=== PATIENT | male | born 1965 | race Caucasian/White ===

== ENCOUNTER 2017-11-22 08:48 | Outpatient (CLI) | payer BC | END 2017-11-22 08:49 | disposition home or self-care (01) | LOC: BICRAD 08:48 | PROVIDERS: ATTEND Internal Medicine | DX: M25.531 Pain in right wrist (principal); M25.532 Pain in left wrist; M25.541 Pain in joints of right hand; M25.542 Pain in joints of left hand; M19.031 Primary osteoarthritis, right wrist; M19.032 Primary osteoarthritis, left wrist; M19.041 Primary osteoarthritis, right hand; M19.042 Primary osteoarthritis, left hand ==

== ENCOUNTER 2018-10-14 13:05 | Inpatient (IN) | payer BC ==
[2018-10-14] MEDS ORDERED: Fentanyl 100 MCG/2 ML VIAL ONE ×2 (13:26→16:05)
[2018-10-14] MEDS ORDERED: Ketorolac Tromethamine 30 MG/ML VIAL ONE (13:26)
[2018-10-14] MEDS ORDERED: Lorazepam 2 MG/ML VIAL ONE (13:26)
[2018-10-14 13:40] LABS: #Eosinphils 0.1 thou/uL (0.0-0.7); #Neutrophils 9.5 thou/uL (1.40-6.50); %Basophils 0.3 % (0.0-1.0); %Eosinophils 0.5 % (0.0-10.0); %Lymphocytes 16.1 % (21.0-51.0); %Monocytes 7.9 % (0.0-10.0); %Neutrophils 75.2 % (42.0-75.0); Hemoglobin 15.9 g/dL (14.0-18.0); Mean Corpuscular HGB CONC 34.6 g/dL (32.0-36.0); Mean Corpuscular Hemoglobin 30.7 pg (27.0-31.0); Mean Corpuscular Volume 88.7 fL (78.0-98.0); Mean Platelet Volume 7.8 fL (7.4-10.4); Platelet Count 240 thou/uL (130-400); Red Blood Cell (RBC) Count 5.17 mill/uL (4.70-6.10); White Blood Cell (WBC) Count 12.6 thou/uL (4.8-10.8)
[2018-10-14 14:03] LABS: CRP (Inflammatory) Less than 0.50 mg/dL (= or < 0.5); Lipase 18 U/L (8-78)
[2018-10-14 14:09] LABS: ALT (SGPT) 35 U/L (8-55); AST (SGOT) 79 U/L (5-34); Albumin 4.5 g/dL (3.5-5.0); Alkaline Phosphatase 96 U/L (40-150); Anion Gap 17 mmol/L (10-20); BUN (Urea Nitrogen) 18 mg/dL (8.4-25.7); Bilirubin, Total 1.3 mg/dL (0.2-1.2); Calc. Creatinine Clearance 0 mL/min (70-130); Calcium 9.9 mg/dL (7.8-10.44); Carbon Dioxide 18 mmol/L (22-29); Chloride 108 mmol/L (98-107); Estimated GFR-MDRD Greater than 90; Globulin 4.3 g/dL (2.4-3.5); Glucose 114 mg/dL (70-105); Potassium 4.6 mmol/L (3.5-5.1); Protein, Total 8.8 g/dL (6.0-8.3); Sodium 138 mmol/L (136-145)
--- NOTE | 2018-10-14 14:31 | RAD ---
LUMBAR SPINE SERIES 3 VIEWS: Date: 10/14/18 HISTORY: Chronic back pain. FINDINGS: The vertebral bodies are normal in height. There are degenerative osteophytes along the course of the spine with disc narrowing at L5-S1. Moderate degenerative facet changes are seen. Some slight loss o f vertebral body height of T12 which appears to be chronic in nature. IMPRESSION: Marked arthritic changes of the spine. No definite acute process. POS: DAVID
--- NOTE | 2018-10-14 16:28 | MRI ---
MRI LUMBAR SPINE WITH AND WITHOUT IV CONTRAST: HISTORY: Intractable back pain. FINDINGS: The conus medullaris is unremarkable, terminating at approximately L1-L2. There are consider able generalized disk desiccation changes, disk osteophytosis, and generalized facet arthrosis. L1-L2: There is no significant canal or lateral recess, or foraminal stenosis. L2-L3: There is some mild central canal and moderate lateral recess stenosis bilaterally, with mild bilateral foraminal stenosis. L3-L4: There is a large central disk extrusion with very severe central canal and lateral recess luisito nosis and marked thecal sac compression with mild bilateral foraminal stenosis. L4-L5: There is moderate central canal and lateral recess stenosis and mild bilateral foraminal sten osis. L5-S1: There is some generalized left posterolateral disk protrusion with some moderate left lateral recess stenosis and moderate to severe left foraminal stenosis with associated annular fissures. No significant abnormal marrow signal. IMPRESSION: 1. Very large, central extruded disk herniation at L3-L4, with very severe central canal and lateral recess stenosis and some associated foraminal stenosis. 2. At least moderate stenosis at L4-L5 and mild to moderate stenosis at L2-L3, as well as a left pos terolateral broad-based protrusion at L5-S1 with left foraminal stenosis. 3. No significant abnormal marrow signal. POS: DAVID
[2018-10-14] MEDS ORDERED: Gadobenate Dimeglumine 529 MG/1 ML (20ML VIAL) ONE (16:55)
[2018-10-14] MEDS ORDERED: Sodium Chloride 0.9% 1,000 ML IV SCH (18:22)
[2018-10-14] MEDS ORDERED: Ondansetron ODT 4 MG TAB SL PRN (18:22)
[2018-10-14] MEDS ORDERED: Ondansetron PF 4 MG/2 ML Vial IVP PRN (18:22)
[2018-10-14] MEDS ORDERED: Morphine 4 MG/ML VIAL SLOW IVP PRN (18:23)
[2018-10-14] MEDS ORDERED: Acetaminophen 325 MG TAB PO PRN (19:23)
[2018-10-14] MEDS ORDERED: Senokot S 8.6-50 MG TAB PO PRN (19:23)
[2018-10-14] MEDS ORDERED: Acetaminophen 650 MG Suppository PR PRN (19:23)
--- NOTE | 2018-10-14 20:02 | HP ---
CHIEF COMPLAINT: Increased low back pain. HISTORY OF PRESENT ILLNESS AND REVIEW OF SYSTEMS: Mr. Barry is a pleasant 53-year-old man with a background history of chronic back pain, following a skydiving accident in 1992. He has been following with a chiropractor and usually manages his pain by taking the occasional ibuprofen. When his pain flares, he will take hydrocodone. The patient states last week he underwent manipulation on Monday and had persistent pain and therefore underwent injections on Monday in his lower back of cortisone. The patient states since then, his pain has been more severe , causing difficulty moving around his home. He has only been able to get up into the toilet. He has not been taking his normal analgesia due to not being able to stand, walking to the kitchen where his pain medications are. The patient normally is able to mobilize without such difficulty. 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 The patient denies noting any urinary or stool incontinence. He reports sciatic like pain shooting down the bilateral legs, which has eased. Denies having any numbness or weakness apart from chronic right-sided weakness associated with a previous stroke. He states he has not been urinating much and last emptied his bladder early this morning, dark and small amounts of urine, which he attributes to not eating or drinking for the last three days. He has had minimal intake. Denies having any fevers, chills, or sweats. Denies having any headaches or dizziness. Has not had any chest pain, palpitations, or shortness of breath. All other review of systems are negative. PAST MEDICAL HISTORY: 1. Possible stroke in the past. 2. Hypertension. 3. Chronic low back pain following skydiving accident in . 4. Diabetes mellitus type 2. PAST SURGICAL HISTORY: 1. Removal of a cyst. 2. Tonsillectomy. SOCIAL HISTORY: The patient denies any alcohol use, drug use. He previously has used tobacco. Lives at home alone. ALLERGIES: VIBRAMYCIN CAPSULE. CURRENT MEDICATIONS: 1. Aspirin 81 mg p.o. daily. 2. Atorvastatin 80 mg once daily. 3. Vitamin D3 of 1000 units by mouth daily. 4. Metformin 500 mg once daily. PHYSICAL EXAMINATION: GENERAL: The patient appears to be in some discomfort and is lying flat on the stretcher, no severe distress at present. He states his pain has eased from a 10/10 to a 5/10. HEENT: Normocephalic and atraumatic. Pupils are equal, round, and reactive to light. Sclerae without icterus. Oropharynx is clear. NECK: Supple without lymphadenopathy. LUNGS: Clear to auscultation bilaterally without wheezes, rales, or rhonchi. CARDIAC: Regular rate and rhythm without audible murmurs, rubs, or gallops. ABDOMEN: Soft, nontender, nondistended. Normoactive bowel sounds present. EXTREMITIES: No clubbing, cyanosis, or edema. Strength is 4/5 in the right leg , stable. Reflexes intact. No focal neurology. LABORATORY DATA: White blood count 12.6, hemoglobin 15.9, hematocrit 45.9, platelets 240. Sodium 138, potassium 4.6, BUN 18, creatinine 0.84, GFR greater than 90. Total bilirubin 1.3, AST 79, ALT 35, and alkaline phosphatase 96. CRP less than 0.50. Lipase 18. IMAGING DATA: 1. Lumbar spine x-ray, October 14, 2018, marked arthritic changes of the spine, no definite acute process. 2. Lumbar spine MRI, October 14, 2018, very large central extruded disk herniation at L3-L4 with very severe central canal and lateral recess stenosis and some associated foraminal stenosis. At least, moderate stenosis at L4-L5, mild to moderate stenosis at L2-L3 as well as a left posterolateral broad-based protrusion at L5-S1 with left foraminal stenosis. PROCEDURES: Bladder scan, less than 200 mL. IMPRESSION AND PLAN: Mr. Barry is being admitted for the following medical conditions. 1.Back Pain. There does seem to be significant stenosis on the MRI of the lumbar spine. However, no symptoms for cauda equina at present. Neurosurgical consult has been requested. Continue analgesia. 2. Diabetes mellitus. Resume home medications. Continue insulin sliding scale. 3. Hypertension. Resume home medications. Monitor blood pressure. 4. Dehydration. The patient is clinically dehydrated with minimal oral intake for the last three days. Continue IV fluids. 5. Gastrointestinal prophylaxis. 6. Venous thromboembolism prophylaxis. The patient's case was discussed with Dr. Grady, who agrees with plan of care as described above. Job ID: [id number] [facility]
[2018-10-14] MEDS: HYDROcodone/Acetaminophen 5/325 mg Tablet PO PRN (21:57)
[2018-10-14] MEDS: Famotidine 20 MG TAB PO SCH (21:58)
[2018-10-14] MEDS: Sodium Chloride 0.9% 1,000 ML IV SCH (21:59)
[2018-10-14 22:46] VITALS: BMI 47.3
[2018-10-15] MEDS ORDERED: Fentanyl 100 MCG/2 ML VIAL SLOW IVP SCH (03:45)
[2018-10-15 06:10] LABS: #Eosinphils 0.2 thou/uL (0.0-0.7); #Lymphocytes 2.9 thou/uL (1.20-3.40); #Monocytes 1.2 thou/uL (0.11-0.59); #Neutrophils 7.3 thou/uL (1.40-6.50); %Basophils 0.4 % (0.0-1.0); %Eosinophils 1.4 % (0.0-10.0); %Lymphocytes 24.9 % (21.0-51.0); %Monocytes 10.5 % (0.0-10.0); %Neutrophils 62.8 % (42.0-75.0); Hemoglobin 14.5 g/dL (14.0-18.0); Mean Corpuscular HGB CONC 33.1 g/dL (32.0-36.0); Mean Corpuscular Hemoglobin 29.7 pg (27.0-31.0); Mean Corpuscular Volume 89.8 fL (78.0-98.0); Mean Platelet Volume 7.6 fL (7.4-10.4); Platelet Count 214 thou/uL (130-400); Red Blood Cell (RBC) Count 4.88 mill/uL (4.70-6.10); White Blood Cell (WBC) Count 11.7 thou/uL (4.8-10.8)
[2018-10-15] MEDS: HYDROcodone/Acetaminophen 5/325 mg Tablet PO PRN (06:24)
[2018-10-15 06:33] LABS: Anion Gap 12 mmol/L (10-20); BUN (Urea Nitrogen) 20 mg/dL (8.4-25.7); Calc. Creatinine Clearance 216 mL/min (70-130); Calcium 9.3 mg/dL (7.8-10.44); Carbon Dioxide 22 mmol/L (22-29); Chloride 108 mmol/L (98-107); Estimated GFR-MDRD Greater than 90; Glucose 107 mg/dL (70-105); Potassium 3.5 mmol/L (3.5-5.1); Sodium 138 mmol/L (136-145)
[2018-10-15] MEDS: Famotidine 20 MG TAB PO SCH ×2 (09:29→20:22)
[2018-10-15] MEDS: Sodium Chloride 0.9% 1,000 ML IV SCH ×2 (09:38→20:19)
[2018-10-15] MEDS: Ketorolac Tromethamine 30 MG/ML VIAL IVP PRN ×2 (13:03→20:23)
--- NOTE | 2018-10-15 16:42 | PDOC.PN ---
- Subjective Encounter Start Date: 10/15/18 Encounter Start Time: 16:40 Subjective: Patient lying in bed, back pain little improved today, he denies chest pain -: or shortness of breath. MRI results reviewed and neurosurgery consulted - Objective MAR Reviewed: Yes Vital Signs & Weight: Vital Signs (12 hours) Temp Pulse Resp BP BP Pulse Ox 10/15/18 12:54 98.3 F 68 20 137/80 95 10/15/18 07:50 98.5 F 72 20 137/82 93 L 10/15/18 07:32 98.5 F 72 20 137/82 93 L Weight Admit Weight 339 lb 7 oz Weight 339 lb 7 oz I&O: 10/14/18 10/15/18 10/16/18 06:59 06:59 06:59 Intake Total 792 Output Total 625 Balance 167 Result Diagrams: 10/15/18 05:35 10/15/18 05:35 Radiology Reviewed by me: Yes Phys Exam - Physical Examination Distress due to pain HEENT: PERRLA, moist MMs, oral pharynx no lesions Neck: no nodes, full ROM Respiratory: no wheezing, no rales, clear to auscultation bilateral Cardiovascular: RRR, no significant murmur, no rub Gastrointestinal: soft, non-tender, positive bowel sounds Musculoskeletal: no edema, pulses present Neurological: non-focal, moves all 4 limbs Lymphatic: no nodes Psychiatric: normal affect, A&O x 3 Skin: no rash, cap refill <2 seconds Dx/Plan (1) Lumbar spinal stenosis Code(s): M48.061 - SPINAL STENOSIS, LUMBAR REGION WITHOUT NEUROGENIC PATRICE Status: Acute Qualifiers: Neurogenic claudication status: with neurogenic claudication Qualified Code (s): M48.062 - Spinal stenosis, lumbar region with neurogenic claudication (2) Diabetes mellitus Code(s): E11.9 - TYPE 2 DIABETES MELLITUS WITHOUT COMPLICATIONS Status: Acute (3) Hypertension Code(s): I10 - ESSENTIAL (PRIMARY) HYPERTENSION Status: Acute - Plan cont current plan of care, PT/OT, DVT proph w/lovenox Neuro consult cancelled and neuro surgery consulted -: MRI results reviewed, continue pain regimen. -: Added Toradol -: Continue other home medications -: Continue on cardiac/consistent carb diet * .
[2018-10-15] MEDS ORDERED: Enoxaparin Sodium 40 MG/0.4 ML SYRINGE SC SCH (21:00)
[2018-10-16] MEDS: HYDROcodone/Acetaminophen 5/325 mg Tablet PO PRN (00:52)
[2018-10-16] MEDS: Ketorolac Tromethamine 30 MG/ML VIAL IVP PRN ×3 (04:30→20:11)
[2018-10-16 07:40] LABS: #Basophils 0.1 thou/uL (0.0-0.2); #Eosinphils 0.3 thou/uL (0.0-0.7); #Lymphocytes 2.3 thou/uL (1.20-3.40); #Monocytes 0.9 thou/uL (0.11-0.59); #Neutrophils 5.5 thou/uL (1.40-6.50); %Basophils 0.9 % (0.0-1.0); %Eosinophils 3.1 % (0.0-10.0); %Lymphocytes 25.7 % (21.0-51.0); %Monocytes 9.9 % (0.0-10.0); %Neutrophils 60.4 % (42.0-75.0); Hemoglobin 14.1 g/dL (14.0-18.0); Mean Corpuscular HGB CONC 33.1 g/dL (32.0-36.0); Mean Corpuscular Hemoglobin 29.6 pg (27.0-31.0); Mean Corpuscular Volume 89.5 fL (78.0-98.0); Mean Platelet Volume 7.7 fL (7.4-10.4); Platelet Count 207 thou/uL (130-400); RBC Distribution Width 11.8 % (11.5-14.5); Red Blood Cell (RBC) Count 4.78 mill/uL (4.70-6.10)
[2018-10-16 08:00] LABS: Anion Gap 14 mmol/L (10-20); BUN (Urea Nitrogen) 19 mg/dL (8.4-25.7); Calc. Creatinine Clearance 239 mL/min (70-130); Calcium 8.8 mg/dL (7.8-10.44); Carbon Dioxide 20 mmol/L (22-29); Chloride 110 mmol/L (98-107); Estimated GFR-MDRD Greater than 90; Glucose 114 mg/dL (70-105); Potassium 3.9 mmol/L (3.5-5.1); Sodium 140 mmol/L (136-145)
[2018-10-16] MEDS: Famotidine 20 MG TAB PO SCH ×2 (08:42→20:11)
--- NOTE | 2018-10-16 10:21 | CON ---
DATE OF CONSULTATION: SERVICE: Neurosurgical Service. HISTORY OF PRESENT ILLNESS: Mr. Barry is a 53-year-old man, whom I have actually seen before in clinic a few years ago for similar problem that he has now with that being back pain and some neurogenic claudication symptoms. These took an acute turn for the worse on Monday [place], where he developed intractable pain that essentially inhibited his ability to walk. He was brought into the emergency department and then admitted with our colleagues in the Medicine Service, where an MRI was performed, revealing a disk herniation at L3-L4 with really critical central canal stenosis encompassing nearly 60% to 70% of the spinal canal at this level. He is congenitally narrowed already, so this certainly predisposes him to spinal nerve compression with either milder pathology, but this particular herniation is of substantial size. The rest of his lumbar spine seems essentially normal. Neurosurgery was consulted for this reason. I saw him at bedside this morning, he is only able to lay recumbent about 15 to 20 degrees, lying further flat causes him more pain in his back. He states that every time he sits up or comes to standing that the pain becomes severe and he develops radicular symptoms of his bilateral lower extremities that nearly completely inhibits him from ambulating. He has been on a pain regimen here that helped reduce some of his symptoms really only when he is lying down and has not seemed to help significantly when sitting or standing. I discussed with him at bedside the recommendations of surgical intervention to perform diskectomy and laminectomy at the site as I had some years ago in clinic, but given the intractable nature of his pain symptoms now, I think it is more prudent at this time. He is open to the idea and would like to proceed. I discussed the procedure in detail as well as risks, benefits, and alternatives. After further discussion, he again concludes that he would like to proceed with this. Our plan will be to add him on to our surgical schedule tomorrow to perform an L3 diskectomy and decompression. He will need to be n.p.o. tonight and consents will need to be signed. I will discuss the case with Dr. Prado who will also meet with the patient either today or in the morning tomorrow. Job ID: [id number]
[2018-10-16] MEDS ORDERED: CEFAZOLIN/Water 2 GM/20 ML SYRINGE SLOW IVP SCH ×2 (10:30→10:45)
[2018-10-16] MEDS: Sodium Chloride 0.9% 1,000 ML IV SCH ×2 (11:56→20:11)
--- NOTE | 2018-10-16 16:00 | PDOC.PN ---
- Subjective Encounter Start Date: 10/16/18 Encounter Start Time: 15:53 Patient lying in bed, he reports pain better with toradol. He denies chest pain or shortness of breath. Still with pain radiating down lower extremities. Neurosurgery planning surgery tomorrow. - Objective MAR Reviewed: Yes Vital Signs & Weight: Vital Signs (12 hours) Temp Pulse Resp BP Pulse Ox 10/16/18 12:43 98.1 F 84 22 H 154/86 H 93 L 10/16/18 08:00 98.1 F 82 22 H 151/87 H 94 L 10/16/18 04:41 97.6 F 73 16 135/81 95 Weight Admit Weight 339 lb 7 oz Weight 339 lb 7 oz I&O: 10/15/18 10/16/18 10/17/18 06:59 06:59 06:59 Intake Total 792 2442 Output Total 625 830 Balance 167 1612 Result Diagrams: 10/16/18 06:50 10/16/18 06:50 Radiology Reviewed by me: Yes Phys Exam - Physical Examination Mild distress due to pain HEENT: PERRLA, oral pharynx no lesions Neck: no nodes, no JVD, full ROM Respiratory: no wheezing, clear to auscultation bilateral Cardiovascular: RRR, no significant murmur Gastrointestinal: soft, non-tender, positive bowel sounds Obese Musculoskeletal: pulses present Neurological: non-focal, moves all 4 limbs Lymphatic: no nodes Psychiatric: normal affect, A&O x 3 Skin: no rash, cap refill <2 seconds Dx/Plan (1) Lumbar spinal stenosis Code(s): M48.061 - SPINAL STENOSIS, LUMBAR REGION WITHOUT NEUROGENIC PATRICE Status: Acute Qualifiers: Neurogenic claudication status: with neurogenic claudication Qualified Code (s): M48.062 - Spinal stenosis, lumbar region with neurogenic claudication (2) Diabetes mellitus Code(s): E11.9 - TYPE 2 DIABETES MELLITUS WITHOUT COMPLICATIONS Status: Acute (3) Hypertension Code(s): I10 - ESSENTIAL (PRIMARY) HYPERTENSION Status: Acute - Plan cont current plan of care * Continue pain regimen * Neurosurgery planning taking patient to OR tomorrow * Continue other home medications * Monitor vitals and labs and further management pending outcome of surgery
--- NOTE | 2018-10-16 21:08 | PRG ---
DATE OF SERVICE: 10/16/2018 Mr. Barry is a 53-year-old gentleman who presented on the 3rd with debilitating low back, buttock and leg pain. He reached a point where he was unable to ambulate secondary to pain. He was admitted to the hospital for pain control and further evaluation. He had an MRI scan performed of the lumbar spine which shows age-appropriate degenerative spine disease, but also a significant disk herniation at L3-L4. which results in severe central canal stenosis. This is almost certainly the contributor to his pain. I had a lengthy discussion with him today in his room and discussed with him his diagnosis, the imaging and the proposed surgical procedure which would be L3-L4 decompression and diskectomy. I informed him of all of his risks, benefits, and alternatives and answered all of his questions. He is eager to move forward with surgery, which will take place tomorrow. Informed consent was provided. Job ID: [id number]
[2018-10-17] MEDS: Ketorolac Tromethamine 30 MG/ML VIAL IVP PRN ×2 (02:15→20:42)
[2018-10-17] MEDS ORDERED: CEFAZOLIN 2 GM/50 ML-DEXTROSE 2 GM in Premix Bag 1 BAG IVPB SCH (05:00)
[2018-10-17] MEDS ORDERED: Midazolam HCl 2 mg/2 ml Vial ONE (07:44)
[2018-10-17] MEDS ORDERED: Fentanyl 100 MCG/2 ML VIAL ONE ×2 (07:44→09:37)
[2018-10-17] MEDS: Famotidine 20 MG TAB PO SCH ×2 (08:09→20:42)
[2018-10-17] MEDS ORDERED: Thrombin 5000 UNITS/5 ML VIAL ONE (08:28)
[2018-10-17] MEDS ORDERED: Bupivacaine HCl 0.5%/Epinephrine 1:200,000/PF 30 ml Vial ONE (08:30)
[2018-10-17] MEDS ORDERED: Ophthalmic Irrigation Solution 15 ML ONE (08:30)
--- NOTE | 2018-10-17 10:36 | EKG ---
Test Reason : PREOP Blood Pressure : / mmHG Vent. Rate : 075 BPM Atrial Rate : 075 BPM P-R Int : 162 ms QRS Dur : 092 ms QT Int : 386 ms P-R-T Axes : 076 059 026 degrees QTc Int : 431 ms Normal sinus rhythm Normal ECG No previous ECGs available Confirmed by DR. Raul MARTINEZ ([id number]) on 10/17/2018 10:36:24 AM Referred By: CHALO Confirmed By:DR. Raul MARTINEZ
[2018-10-17] MEDS ORDERED: Succinylcholine Chloride 20 MG/ML 10 ml SYRINGE FS ONE (10:41)
[2018-10-17] MEDS ORDERED: ePHEDrine 50 MG/ML VIAL ONE (10:41)
[2018-10-17] MEDS ORDERED: Lidocaine 1% PF 5 ML VIAL ONE (10:41)
[2018-10-17] MEDS ORDERED: PROPOFOL 200 MG/20 ML VIAL ONE (10:41)
[2018-10-17] MEDS ORDERED: Rocuronium Bromide 10 MG/ML (10ML VIAL) ONE (10:41)
[2018-10-17] MEDS ORDERED: Ketorolac Tromethamine 30 MG/ML VIAL ONE (10:41)
[2018-10-17] MEDS ORDERED: Ondansetron PF 4 MG/2 ML Vial ONE (10:41)
[2018-10-17] MEDS ORDERED: Glycopyrrolate 0.2 MG/ML 5 ML SYRINGE ONE (10:41)
[2018-10-17] MEDS ORDERED: Dexamethasone 20 MG/5 ML VIAL ONE (10:41)
[2018-10-17] MEDS ORDERED: HYDROmorphone 2 MG/ML VIAL SLOW IVP PRN (10:51)
[2018-10-17] MEDS ORDERED: Promethazine HCl 25 MG/ML VIAL IM PRN (10:51)
[2018-10-17] MEDS ORDERED: Promethazine HCl 25 MG/ML VIAL SLOW IVP PRN (10:51)
[2018-10-17] MEDS ORDERED: Ketorolac Tromethamine 30 MG/ML VIAL IVP PRN (10:51)
[2018-10-17] MEDS ORDERED: Ondansetron HCl/PF 4 MG/2 ML Vial IVP PRN (10:51)
--- NOTE | 2018-10-17 10:54 | OP ---
DATE OF PROCEDURE: 10/17/2018 SHOT HOLE DRILLER: Austen Trujillo PA-C. INDICATION: Pain. DIAGNOSIS: Lumbar stenosis with claudication and radiculopathy. PROCEDURE PERFORMED: L3-L4 lumbar decompression with diskectomy. ANESTHESIA: General. DESCRIPTION OF PROCEDURE: The patient was brought into the operating room and placed under general anesthesia. He was flipped from the supine to prone position on the operating room table. A linear incision was planned over the L3-L4 segment. After prepping and draping and after preoperative pause, the incision was created. The soft tissues were swept away from midline. Self-retaining retractors were placed. We used deep retractors secondary to large body habitus, which increased the operative time, which will be reflected in a surgical modifier 22. After identifying the appropriate 3 and 4 level with C-arm fluoroscopy, we then used an Adson rongeur as well as a high-speed cutting drill bit as well as 2, 3, and 4 mm Kerrison to perform a laminectomy. Lateral recesses were decompressed as were the exiting L4 nerve roots. I was able to mobilize the thecal sac medially where there was for the most part, a large calcified disk present. I was only able to remove a small amount of disk as most of this was calcified. We did decompress around the thecal sac well. The wound was irrigated. Hemostasis was maintained throughout. The wound was then closed in anatomic layers and a pressure dressing was applied. There were no known procedural complications. Job ID: [id number]
[2018-10-17] MEDS: Sodium Chloride 0.9% 1,000 ML IV SCH (14:50)
--- NOTE | 2018-10-17 17:26 | PDOC.PN ---
- Subjective Encounter Start Date: 10/17/18 Encounter Start Time: 17:24 Patient lying in bed s/p diskectomy, he reports feeling better. Pain improved, he denies chest pain, shortness of breath, abdominal pain, numbness or tingling. Vitals stable. - Objective MAR Reviewed: Yes Vital Signs & Weight: Vital Signs (12 hours) Temp Pulse Resp BP BP BP Pulse Ox 10/17/18 16:10 98.3 F 71 19 108/71 96 10/17/18 11:25 98.1 F 68 18 130/81 130/81 98 10/17/18 07:55 97.7 F 88 19 137/69 99 10/17/18 07:15 98.3 F 70 20 150/92 H 150/92 H 93 L Weight Admit Weight 339 lb 7 oz Weight 339 lb 7 oz I&O: 10/16/18 10/17/18 10/18/18 06:59 06:59 06:59 Intake Total 2442 857 Output Total 830 Balance 1612 857 Result Diagrams: 10/16/18 06:50 10/16/18 06:50 Phys Exam - Physical Examination Constitutional: NAD HEENT: PERRLA, oral pharynx no lesions Neck: no nodes, full ROM Respiratory: no wheezing, clear to auscultation bilateral Cardiovascular: RRR, no significant murmur Gastrointestinal: soft, positive bowel sounds obese Musculoskeletal: no edema, pulses present Neurological: non-focal, normal sensation, moves all 4 limbs Lymphatic: no nodes Psychiatric: normal affect, A&O x 3 Skin: no rash, cap refill <2 seconds Dx/Plan (1) Lumbar spinal stenosis Code(s): M48.061 - SPINAL STENOSIS, LUMBAR REGION WITHOUT NEUROGENIC PATRICE Status: Acute Qualifiers: Neurogenic claudication status: with neurogenic claudication Qualified Code (s): M48.062 - Spinal stenosis, lumbar region with neurogenic claudication (2) Diabetes mellitus Code(s): E11.9 - TYPE 2 DIABETES MELLITUS WITHOUT COMPLICATIONS Status: Acute (3) Hypertension Code(s): I10 - ESSENTIAL (PRIMARY) HYPERTENSION Status: Acute - Plan cont current plan of care, PT/OT * Continue pain control * PT/OT * monitor over night * If stable in am likely discharged home and follow up with surgery
[2018-10-18 05:33] LABS: #Basophils 0.1 thou/uL (0.0-0.2); #Eosinphils 0.1 thou/uL (0.0-0.7); #Lymphocytes 2.6 thou/uL (1.20-3.40); #Monocytes 1.3 thou/uL (0.11-0.59); #Neutrophils 9.6 thou/uL (1.40-6.50); %Basophils 0.4 % (0.0-1.0); %Eosinophils 0.5 % (0.0-10.0); %Lymphocytes 19.2 % (21.0-51.0); %Monocytes 9.6 % (0.0-10.0); %Neutrophils 70.2 % (42.0-75.0); Hemoglobin 13.3 g/dL (14.0-18.0); Mean Corpuscular HGB CONC 33.7 g/dL (32.0-36.0); Mean Corpuscular Hemoglobin 30.2 pg (27.0-31.0); Mean Corpuscular Volume 89.7 fL (78.0-98.0); Platelet Count 208 thou/uL (130-400); RBC Distribution Width 11.8 % (11.5-14.5); Red Blood Cell (RBC) Count 4.41 mill/uL (4.70-6.10); White Blood Cell (WBC) Count 13.7 thou/uL (4.8-10.8)
[2018-10-18 05:54] LABS: Anion Gap 13 mmol/L (10-20); BUN (Urea Nitrogen) 18 mg/dL (8.4-25.7); Calc. Creatinine Clearance 216 mL/min (70-130); Calcium 9.2 mg/dL (7.8-10.44); Carbon Dioxide 23 mmol/L (22-29); Chloride 108 mmol/L (98-107); Estimated GFR-MDRD Greater than 90; Glucose 116 mg/dL (70-105); Magnesium 2.2 mg/dL (1.6-2.6); Potassium 3.8 mmol/L (3.5-5.1); Sodium 140 mmol/L (136-145)
[2018-10-18] MEDS: Famotidine 20 MG TAB PO SCH ×2 (09:39→20:37)
[2018-10-18] MEDS: Ketorolac Tromethamine 30 MG/ML VIAL IVP PRN (11:22)
--- NOTE | 2018-10-18 12:54 | PDOC.PN ---
- Subjective Encounter Start Date: 10/18/18 Encounter Start Time: 09:00 Pt seen for followup re; spinal stenosis. Says he feels slightly better, but has pain with movement. - Objective MAR Reviewed: Yes Vital Signs & Weight: Vital Signs (12 hours) Temp Pulse Resp BP Pulse Ox 10/18/18 09:44 95 10/18/18 08:00 98.6 F 83 22 H 152/91 H 95 Weight Admit Weight 339 lb 7 oz Weight 339 lb 7 oz I&O: 10/17/18 10/18/18 10/19/18 06:59 06:59 06:59 Intake Total 857 1170 Output Total 600 Balance 857 570 Result Diagrams: 10/18/18 04:55 10/18/18 04:55 Additional Labs: Accuchecks 10/17/18 11:01 POC Glucose 148 H Labs reviewed by me Phys Exam - Physical Examination Morbid obesity HEENT: moist MMs Neck: supple Respiratory: clear to auscultation bilateral Cardiovascular: RRR Gastrointestinal: soft Neurological: moves all 4 limbs Psychiatric: normal affect Dx/Plan (1) Lumbar spinal stenosis Code(s): M48.061 - SPINAL STENOSIS, LUMBAR REGION WITHOUT NEUROGENIC PATRICE Status: Acute Qualifiers: Neurogenic claudication status: with neurogenic claudication Qualified Code (s): M48.062 - Spinal stenosis, lumbar region with neurogenic claudication Comment: s/p surgery (2) Diabetes mellitus Code(s): E11.9 - TYPE 2 DIABETES MELLITUS WITHOUT COMPLICATIONS Status: Chronic Comment: controlled (3) Hypertension Code(s): I10 - ESSENTIAL (PRIMARY) HYPERTENSION Status: Chronic Comment: monjitor vital signs, titrate antihypertensives as needed - Plan * . Review of Systems - Review of Systems Respiratory: negative: Cough, Shortness of Breath, SOB with Excertion, Pleuritic Pain, Wheezing Cardiovascular: negative: chest pain, palpitations, orthopnea, paroxysmal nocturnal dyspnea, edema, light headedness Musculoskeletal: Back Pain - Medications/Allergies Allergies/Adverse Reactions: Allergies Allergy/AdvReac Type Severity Reaction Status Date / Time doxycycline [From Vibramycin] Allergy Verified 10/14/18 22:10 Medications: Current Medications Acetaminophen (Tylenol) 650 mg PO Q4H PRN PRN Reason: Headache/Fever/Mild Pain (1-3) Acetaminophen (Tylenol) 650 mg IA Q4H PRN PRN Reason: Headache/Fever/Mild Pain (1-3) Hydrocodone Bitart/Acetaminophen ([place] 5/325) 1 tab PO Q4H PRN PRN Reason: Moderate Pain (4-6) Last Admin: 10/16/18 00:52 Dose: 1 tab Famotidine (Pepcid) 20 mg PO BID [facility] Last Admin: 10/18/18 09:39 Dose: 20 mg Senna/Docusate Sodium (Senokot S) 2 tab PO BID PRN PRN Reason: Constipation Sodium Chloride (Flush - Normal Saline) 10 ml IVF Q12HR [facility] Last Admin: 10/18/18 09:39 Dose: 10 ml Sodium Chloride (Flush - Normal Saline) 10 ml IVF PRN PRN PRN Reason: Saline Flush
[2018-10-18] MEDS ORDERED: Bisacodyl 5 MG TAB PO PRN (13:41)
[2018-10-18] MEDS ORDERED: Bisacodyl 5 MG TAB PO SCH (13:45)
[2018-10-18] MEDS: HYDROcodone/Acetaminophen 5/325 mg Tablet PO PRN (20:37)
[2018-10-19] MEDS: HYDROcodone/Acetaminophen 5/325 mg Tablet PO PRN ×3 (00:45→14:30)
[2018-10-19] MEDS: Famotidine 20 MG TAB PO SCH (08:01)
[2018-10-19] MEDS ORDERED: traMADol HCl 50 MG TAB PO PRN ×2 (08:25)
[2018-10-19] MEDS ORDERED: Acetaminophen/Codeine 30-300mg Tablet PO PRN ×2 (08:26)
[2018-10-19 11:50] VITALS: BP 147/85; TEMP 98.6
--- NOTE | 2018-10-20 00:59 | DIS ---
DATE OF ADMISSION: 10/17/2018 DATE OF DISCHARGE: 10/19/2018 PRIMARY CARE PROVIDER: Claire Rivas MD DISCHARGE DIAGNOSIS: Lumbar spinal stenosis. CONDITION OF PATIENT ON THE DAY OF DISCHARGE: Stable. I assessed Mr. Barry on the day of discharge. He reports back pain is better. He is ambulating. Vital signs are stable. S1 and S2 are heard, regular. Lungs are clear to auscultation bilaterally. CONSULTATIONS DURING THIS HOSPITALIZATION: Neurosurgery, Dr. Prado. HOSPITAL COURSE: Mr. Barry is a pleasant 53-year-old gentleman, who was admitted to [facility] on October 14, 2018, for back pain. MRI of the lumbar spine showed very large central extruded disc herniation at L3-L4 with very severe central canal and lateral recess stenosis, and some associated foraminal stenosis. He also had at least moderate stenosis at L4-L5 and [id number] stenosis at L2-L3, as well as left posterolateral broad-based protrusion at L5- S1 with left foraminal stenosis. He was seen by Neurosurgery Service. On October 17, he underwent L3-L4 lumbar decompression with discectomy. His pain gradually improved. He is being discharged home in a stable condition. In terms of discharge medications, he has received a prescription for Tylenol No. 4 and Flexeril. He is also being discharged home on aspirin 81 mg daily, Lipitor 40 mg at bedtime, vitamin D 1000 units daily, and metformin 750 mg daily. He had a normal creatinine during this hospitalization. Many thanks for allowing me to participate in your patient's care. Please feel free to contact me with any questions or concerns. DISCHARGE DESTINATION: Home. TOTAL AMOUNT OF TIME SPENT COORDINATING THIS DISCHARGE: Thirty two minutes. Job ID: [id number] MTDD
== END 2018-10-19 15:30 | disposition home or self-care (01) | DRG 520 ==
LOC: ERS 13:05 → T4-B 14:31 → OBSVTOIN 10-17 14:24
PROVIDERS: ADMIT Internal Medicine; ATTEND Internal Medicine
PROC: 0SB20ZZ Excision of Lumbar Vertebral Disc, Open Approach (ICD-10-PCS; principal; 2018-10-17)
PROC: 01NB0ZZ Release Lumbar Nerve, Open Approach (ICD-10-PCS; 2018-10-17)
PROC: 00NY0ZZ Release Lumbar Spinal Cord, Open Approach (ICD-10-PCS; 2018-10-17)
DX: M48.061 Spinal stenosis, lumbar region without neurogenic claudication (principal); I10 Essential (primary) hypertension; E11.9 Type 2 diabetes mellitus without complications; M51.16 Intervertebral disc disorders with radiculopathy, lumbar region; E86.0 Dehydration; Z90.49 Acquired absence of other specified parts of digestive tract; Z79.82 Long term (current) use of aspirin; Z79.84 Long term (current) use of oral hypoglycemic drugs
CPT/HCPCS: 36415; 36416; 72100; 72158; 76000; 80048; 80053; 83690; 83735; 85025; 85652; 86140; 93005; 93010; 96374; 96375; A9577; J0131; J0670; J1100; J1650; J1885; J2001; J2060; J2250; J2270; J2405; J2704; J3010; J3490

== ENCOUNTER 2018-10-29 09:55 | Inpatient (IN) | payer BC ==
[2018-10-29 10:44] LABS: #Eosinphils 0.3 thou/uL (0.0-0.7); #Lymphocytes 1.7 thou/uL (1.20-3.40); #Monocytes 0.6 thou/uL (0.11-0.59); #Neutrophils 7.6 thou/uL (1.40-6.50); %Basophils 0.4 % (0.0-1.0); %Eosinophils 2.6 % (0.0-10.0); %Lymphocytes 16.5 % (21.0-51.0); %Monocytes 5.4 % (0.0-10.0); Hemoglobin 13.6 g/dL (14.0-18.0); Mean Corpuscular Hemoglobin 29.6 pg (27.0-31.0); Mean Corpuscular Volume 89.6 fL (78.0-98.0); Mean Platelet Volume 7.6 fL (7.4-10.4); Platelet Count 267 thou/uL (130-400); RBC Distribution Width 11.8 % (11.5-14.5); Red Blood Cell (RBC) Count 4.58 mill/uL (4.70-6.10); White Blood Cell (WBC) Count 10.2 thou/uL (4.8-10.8)
[2018-10-29] MEDS ORDERED: Fentanyl 100 MCG/2 ML VIAL ONE (10:53)
[2018-10-29] MEDS ORDERED: Dexamethasone 4 mg/ml Vial ONE (10:56)
[2018-10-29 11:07] LABS: ALT (SGPT) 27 U/L (8-55); AST (SGOT) 24 U/L (5-34); Albumin 4.1 g/dL (3.5-5.0); Alkaline Phosphatase 98 U/L (40-150); Anion Gap 13 mmol/L (10-20); BUN (Urea Nitrogen) 8 mg/dL (8.4-25.7); Bilirubin, Total 0.8 mg/dL (0.2-1.2); Calc. Creatinine Clearance 0 mL/min (70-130); Calcium 9.5 mg/dL (7.8-10.44); Carbon Dioxide 25 mmol/L (22-29); Chloride 105 mmol/L (98-107); Estimated GFR-MDRD Greater than 90; Glucose 132 mg/dL (70-105); Lipase 34 U/L (8-78); Potassium 4.5 mmol/L (3.5-5.1); Protein, Total 7.1 g/dL (6.0-8.3); Sodium 138 mmol/L (136-145)
[2018-10-29 13:14] LABS: Bilirubin Negative (Negative); Blood, Urine Negative (Negative); Clarity CLEAR (Clear); Glucose, Urine (Dipstick) Negative (Negative); Leukocyte Trace (Negative); Nitrite Negative (Negative); Protein, Urine (Dipstick) Negative (Neg-Trace); Specific Gravity, Urine 1.009 (1.002-1.036)
[2018-10-29 13:17] LABS: Bacteria/HPF None Seen HPF (None Seen); Hyaline Casts/LPF 0-3 HYALINE CAST LPF (0-3 Hyaline); Pathc Cast-AUWi Flag 0.58 (0-2.49); RBC/HPF 0-3 HPF (0-3); Squamous Epithelial 0-3 HPF (0-3); WBC/HPF 0-3 HPF (0-3)
[2018-10-29] MEDS ORDERED: Ketorolac Tromethamine 30 MG/ML VIAL ONE (13:57)
[2018-10-29] MEDS ORDERED: HYDROcodone/Acetaminophen 7.5/325 mg Tablet ONE (18:17)
[2018-10-29] MEDS ORDERED: HYDROcodone/Acetaminophen 7.5/325 mg Tablet PO PRN ×2 (18:35)
[2018-10-29] MEDS ORDERED: HumaLOG 300 UNITS/3 ML VIAL SC PRN ×2 (18:38)
[2018-10-29] MEDS ORDERED: Dextrose 5% in Water 1,000 ML IV PRN (18:38)
[2018-10-29] MEDS ORDERED: Dextrose 50% Abboject 50 ML SYRINGE SLOW IVP PRN (18:38)
[2018-10-29] MEDS ORDERED: Ondansetron ODT 4 MG TAB PO PRN (18:38)
--- NOTE | 2018-10-29 20:00 | HP ---
PRIMARY CARE PHYSICIAN: Dr. Claire Rivas. PRIMARY NEUROSURGEON: Dr. Prado. CHIEF COMPLAINT: Increased lumbar back pain. HISTORY OF PRESENT ILLNESS: Mr. Barry is a pleasant 53-year-old male with a past medical history of hypertension, spinal stenosis, status post L3-L4 lumbar decompression with diskectomy on October 17; diabetes mellitus type 2, who had presented to [facility] earlier today with worsening lower back pain. He states the pain was doing well; however, after he followed up with his primary care physician on , he had received a Toradol injection and later went home. He states when he woke up Monday morning, the pain had been quite severe and had worsened over the weekend. He states earlier this morning, he was unable to walk due to his severe pain that would radiate down both legs; however, right leg was worse than the left. There was an initial plan for the patient to seek inpatient rehabilitation facility; however, no beds available at this time. He was seen and examined. He had denied any chest pain or shortness of breath. No abdominal pain. He had no signs and symptoms of fever, chills, dizziness, or lightheadedness. He had denied any numbness or tingling. He states his lumbar back pain is worse with movement and he admits to the pain radiating down bilateral lower extremities, which as mentioned before, right worse than left. He states with his history of diabetes mellitus, he takes metformin at home. He states he does not take anything for his blood pressure; however, does take atorvastatin for an elevated cholesterol. At this time, it was determined that he will be admitted under observation. PT/OT will be ordered along with consultation for Case Management for placement into rehab. Also, Neurosurgery Services, Dr. Prado will be consulted for further evaluation and management of his symptoms. He will be placed on his home dose of [place]. He will also be placed on IV Toradol and cyclobenzaprine for his pain control. REVIEW OF SYSTEMS: All other systems were reviewed and found to be negative unless mentioned in the HPI. PAST MEDICAL HISTORY: 1. Lumbar stenosis. 2. Hypertension. 3. Diabetes mellitus type 2. PAST SURGICAL HISTORY: Removal of a cyst, tonsillectomy, status post L3-L4 lumbar decompression and diskectomy on 10/17/2018. SOCIAL HISTORY: The patient denies any alcohol, tobacco, or illicit drug use. He states he had previously smoked tobacco, however, has stopped. ALLERGIES: DOXYCYCLINE. CURRENT HOME MEDICATIONS: 1. Aspirin 81 mg p.o. daily. 2. Atorvastatin 80 mg once daily. 3. Vitamin D3, 1000 units p.o. daily. 4. Metformin 500 mg once daily. PHYSICAL EXAMINATION: VITAL SIGNS: BP 139/87, pulse 92, respirations 18, temp 98.4 degrees Fahrenheit, O2 saturation 98% on room air. GENERAL: The patient is awake, alert, and oriented x3. Moderate acute distress noted due to lumbar back pain. HEENT: Atraumatic, normocephalic. Pupils are round and reactive to light. Extraocular muscles intact. Moist mucous membranes are noted. NECK: Soft and supple. Trachea midline. No JVD. No bruit noted. CARDIOVASCULAR: Positive S1 and S2. Regular rate and rhythm. No murmur auscultated. RESPIRATORY: Clear to auscultation bilaterally. No wheezes, rales, or rhonchi. ABDOMEN: Soft, nontender, obese. Bowel sounds present. MUSCULOSKELETAL: Strength 5+ bilaterally in upper and lower extremities. Pedal and radial pulses palpable 2+ bilaterally. Moves all extremities equal. No edema noted. SKIN: Warm, dry, and intact. No rashes or lesions noted. No ulcerations. NEUROLOGIC: Cranial nerves 2 through 12 intact. No focal deficits noted. Gait not assessed. PSYCHIATRIC: Good mood and affect. LABORATORY DATA: WBC 10.2, RBC 4.58, hemoglobin 13.6, platelets 267. ESR 44. Sodium 138, potassium 4.5, chloride 105, carbon dioxide 25, anion gap 13, BUN 8, creatinine 0.85, estimated GFR greater than 90, glucose 132. CRP 0.92. Lipase 34. Urinalysis showed trace leukocyte esterase, otherwise unremarkable. ASSESSMENT AND PLAN: 1. Lumbar back pain secondary to lumbar stenosis, status post decompression and diskectomy. Neurosurgery Services, Dr. Prado consulted for further evaluation. Continue the patient's home regimen including [place] as needed for pain control, add cyclobenzaprine t.i.d., and IV Toradol 30 mg p.r.n. pain. Continue PT/OT and consult case hardener for rehabilitation placement. 2. Hypertension. The patient's blood pressure is currently stable. He also does not take anything at home for his blood pressure. We will monitor vital signs closely and add p.r.n. as needed if his blood pressure worsens. 3. Diabetes mellitus type 2. Continue the patient's home regimen with metformin and place on insulin sliding scale. Continue with diabetic diet at this time. 4. Deep venous thrombosis and gastrointestinal prophylaxis. 5. Code status, full code. 6. Disposition. Pending clinical findings; however, the patient will likely be discharged to inpatient rehabilitation center once bed is available hopefully in the next 24 to 48 hours. Job ID: [id number]
[2018-10-29] MEDS ORDERED: Acetaminophen 325 MG TAB PO PRN (22:00)
[2018-10-29] MEDS: Famotidine 20 MG TAB PO SCH (22:31)
[2018-10-29] MEDS: Atorvastatin Calcium 40 MG TAB PO SCH (22:31)
[2018-10-29] MEDS: Ketorolac Tromethamine 30 MG/ML VIAL IVP SCH (22:32)
[2018-10-30] MEDS: Ketorolac Tromethamine 30 MG/ML VIAL IVP SCH ×4 (05:52→23:51)
[2018-10-30 07:49] LABS: Anion Gap 13 mmol/L (10-20); BUN (Urea Nitrogen) 12 mg/dL (8.4-25.7); Calc. Creatinine Clearance 0 mL/min (70-130); Carbon Dioxide 22 mmol/L (22-29); Chloride 106 mmol/L (98-107); Estimated GFR-MDRD Greater than 90; Glucose 122 mg/dL (70-105); Sodium 137 mmol/L (136-145)
[2018-10-30] MEDS: Famotidine 20 MG TAB PO SCH ×2 (08:29→20:18)
[2018-10-30] MEDS: Aspirin 81 mg Enteric Coated Tablet PO SCH (08:30)
[2018-10-30] MEDS: metFORMIN XR 500 MG TAB PO SCH (08:30)
[2018-10-30] MEDS: Enoxaparin Sodium 40 MG/0.4 ML SYRINGE SC SCH (08:32)
[2018-10-30 08:41] LABS: #Eosinphils 0.1 thou/uL (0.0-0.7); #Lymphocytes 2.2 thou/uL (1.20-3.40); #Monocytes 1.1 thou/uL (0.11-0.59); #Neutrophils 10.9 thou/uL (1.40-6.50); %Basophils 0.2 % (0.0-1.0); %Eosinophils 0.6 % (0.0-10.0); %Lymphocytes 15.4 % (21.0-51.0); %Monocytes 7.8 % (0.0-10.0); Mean Corpuscular HGB CONC 33.5 g/dL (32.0-36.0); Mean Corpuscular Hemoglobin 29.9 pg (27.0-31.0); Mean Corpuscular Volume 89.2 fL (78.0-98.0); Mean Platelet Volume 7.7 fL (7.4-10.4); Platelet Count 274 thou/uL (130-400); RBC Distribution Width 11.9 % (11.5-14.5); Red Blood Cell (RBC) Count 4.68 mill/uL (4.70-6.10); White Blood Cell (WBC) Count 14.3 thou/uL (4.8-10.8)
[2018-10-30] MEDS: Cyclobenzaprine 10 MG TAB PO PRN ×3 (09:02→21:23)
[2018-10-30] MEDS ORDERED: Senokot S 8.6-50 MG TAB PO SCH ×2 (10:15→10:30)
--- NOTE | 2018-10-30 11:25 | PRG ---
DATE OF SERVICE: 10/30/2018 SUBJECTIVE: The patient is seen and examined at bedside. He feels somewhat better. Total amount of pain is less. He did not have any bowel movements for several days. OBJECTIVE: VITAL SIGNS: Blood pressure is 144/88, pulse is 88, temperature is 97.7, respirations 18, and O2 saturations 94% on room air. HEENT: His head is atraumatic and normocephalic. Eyes are PERRLA. Sclerae are nonicteric. Oral mucosa is moist. NECK: Supple. No lymphadenopathy. Thyroid is not palpable. LUNGS: Clear. HEART: S1 and S2 normal. No S3. No S4. ABDOMEN: Soft, obese, nontender, and nondistended. EXTREMITIES: No clubbing, cyanosis, or edema. NEUROLOGIC: Cranial nerves intact. No focal deficits. Gait was not assessed. LABORATORY DATA: Labs showed a white count of 14.3, hemoglobin of 14.0, hematocrit 41.8, and platelet count is 274,000. Normal electrolytes and creatinine. Normal BUN. Glycemia is ranging from 124 to 143. Microbiology none. IMPRESSION: 1. Lumbar stenosis status post decompression and diskectomy. The patient is basically for pain management and PT. We are waiting for rehabilitation center to give us a grid line to transfer him there. 2. Hypertension. 3. Diabetes mellitus type 2 on metformin. 4. Constipation. PLAN: Continue his current regimen with NSAIDs and IV Toradol p.r.n. Start stool softener. Continue PT, OT, and transfer him as soon as rehab bed is available. Job ID: [id number]
[2018-10-30] MEDS: Atorvastatin Calcium 40 MG TAB PO SCH (20:18)
[2018-10-30] MEDS: Senokot S 8.6-50 MG TAB PO SCH (20:19)
[2018-10-31] MEDS: Ketorolac Tromethamine 30 MG/ML VIAL IVP SCH ×4 (05:48→23:48)
[2018-10-31] MEDS: metFORMIN XR 500 MG TAB PO SCH (09:19)
[2018-10-31] MEDS: Aspirin 81 mg Enteric Coated Tablet PO SCH (09:20)
[2018-10-31] MEDS: Enoxaparin Sodium 40 MG/0.4 ML SYRINGE SC SCH (09:20)
[2018-10-31] MEDS: Famotidine 20 MG TAB PO SCH ×2 (09:20→21:02)
[2018-10-31] MEDS: Senokot S 8.6-50 MG TAB PO SCH ×2 (09:21→20:57)
[2018-10-31] MEDS: Cyclobenzaprine 10 MG TAB PO PRN (11:39)
--- NOTE | 2018-10-31 15:32 | PRG ---
DATE OF SERVICE: 10/31/2018 SUBJECTIVE: The patient is seen and examined at the bedside. He is doing significantly better. He is awaiting his transfer to the rehab. OBJECTIVE: VITAL SIGNS: Blood pressure is 144/86, pulse is 70, temperature is 98, O2 saturation is 95% on room air, and respiratory rate is 20. HEENT: His head is atraumatic and normocephalic. Eyes are PERRLA. Sclerae are nonicteric. Oral mucosa is moist. NECK: Supple. No lymphadenopathy. LUNGS: Clear. HEART: S1, S2 normal. No S3. No S4. ABDOMEN: Soft, obese, nontender. EXTREMITIES: No clubbing, cyanosis, or edema. NEUROLOGICAL: He is alert and oriented x4. There is no any motor or sensory deficits present, although he has quite significant amount of discomfort on range of motion in both hips. LABORATORY DATA: Labs showed glycemia ranging from 96-139. Microbiology, none. IMPRESSION: 1. Lumbar stenosis status post decompression and diskectomy. 2. Hypertension. 3. Diabetes mellitus type 2, controlled. 4. Constipation. PLAN: The patient will continue his current regimen with pain management and PT, OT and then he will be transferred to the rehab center whenever it is available and arranged. Job ID: [id number]
[2018-10-31] MEDS: Ondansetron PF 4 MG/2 ML Vial IVP PRN (17:50)
[2018-10-31] MEDS: Atorvastatin Calcium 40 MG TAB PO SCH (21:02)
[2018-11-01] MEDS: Ketorolac Tromethamine 30 MG/ML VIAL IVP SCH ×2 (05:49→12:32)
[2018-11-01] MEDS: Ondansetron PF 4 MG/2 ML Vial IVP PRN (08:35)
[2018-11-01] MEDS: Famotidine 20 MG TAB PO SCH ×2 (08:36→20:48)
[2018-11-01] MEDS: Aspirin 81 mg Enteric Coated Tablet PO SCH (08:37)
[2018-11-01] MEDS: Enoxaparin Sodium 40 MG/0.4 ML SYRINGE SC SCH (08:37)
[2018-11-01] MEDS: metFORMIN XR 500 MG TAB PO SCH (08:37)
[2018-11-01] MEDS: Senokot S 8.6-50 MG TAB PO SCH ×2 (08:38→20:48)
[2018-11-01] MEDS: Sodium Chloride 0.45% 1,000 ML IV SCH (14:36)
--- NOTE | 2018-11-01 14:41 | PRG ---
DATE OF SERVICE: 11/01/2018 SUBJECTIVE: The patient is seen and examined at bedside. He complains that he does not have much appetite. He does not take much fluids orally. The pain is kind of up and down in terms of severity. He had three bowel movements. OBJECTIVE: VITAL SIGNS: Blood pressure is 130/83, pulse is 65, temperature is 98.4, respiratory rate is 20, O2 saturation 96% on room air. HEENT: His head is atraumatic and normocephalic. Eyes are PERRLA. Sclerae are nonicteric. Oral mucosa is moist. NECK: Supple. LUNGS: Clear. HEART: S1, S2 normal. No S3. No S4. No any murmur. ABDOMEN: Soft, nontender. Bowel sounds are present. No organomegaly. EXTREMITIES: No clubbing, cyanosis, or edema, but has reproducible pain on both legs rising. NEUROLOGICAL: He is alert and oriented x4. There are no any motor deficits. No sensory deficits. Cranial nerves are intact. LABORATORY DATA: None today. IMPRESSION: 1. Lumbar spinal stenosis, status post decompression and diskectomy. 2. Hypertension. 3. Diabetes mellitus type 2, controlled. 4. Constipation, intermittent with some diarrhea, which seems to be like irritable bowel syndrome. PLAN: Plan is to stop his tramadol and use [place]. Continue PT, transfer to the rehab as soon as he is improved. Start IV fluids normal saline at 100 mL/h since he has not been drinking much. BMP to make sure his kidney function is fine since we did not have any BMP since 30 of October. Job ID: [id number]
[2018-11-01 14:59] LABS: Anion Gap 13 mmol/L (10-20); BUN (Urea Nitrogen) 19 mg/dL (8.4-25.7); Calc. Creatinine Clearance 197 mL/min (70-130); Calcium 9.5 mg/dL (7.8-10.44); Carbon Dioxide 23 mmol/L (22-29); Chloride 108 mmol/L (98-107); Estimated GFR-MDRD Greater than 90; Glucose 97 mg/dL (70-105); Potassium 4.1 mmol/L (3.5-5.1); Sodium 140 mmol/L (136-145)
[2018-11-01] MEDS: Atorvastatin Calcium 40 MG TAB PO SCH (20:48)
[2018-11-01] MEDS: HYDROcodone/Acetaminophen 7.5/325 mg Tablet PO PRN (22:42)
[2018-11-02] MEDS: Sodium Chloride 0.45% 1,000 ML IV SCH ×2 (00:42→09:35)
[2018-11-02] MEDS: HYDROcodone/Acetaminophen 7.5/325 mg Tablet PO PRN ×3 (05:40→14:59)
[2018-11-02] MEDS: Famotidine 20 MG TAB PO SCH (08:23)
[2018-11-02] MEDS: Aspirin 81 mg Enteric Coated Tablet PO SCH (08:24)
[2018-11-02] MEDS: metFORMIN XR 500 MG TAB PO SCH (08:24)
[2018-11-02] MEDS: Enoxaparin Sodium 40 MG/0.4 ML SYRINGE SC SCH (08:28)
[2018-11-02] MEDS: Senokot S 8.6-50 MG TAB PO SCH (08:29)
--- NOTE | 2018-11-02 12:44 | PRG ---
DATE OF SERVICE: 11/02/2018 SUBJECTIVE: The patient is seen and examined at the bedside. He seems to be doing better in terms of pain control with opioids orally today and Ortho PA came and removed his stitches. OBJECTIVE: VITAL SIGNS: Blood pressure is 159/84, pulse is 71, temperature is 97.2, O2 saturation is 94% on room air, and respiratory rate is 18. HEENT: His head is atraumatic and normocephalic. Eyes are PERRLA. Sclerae are nonicteric. Oral mucosa is moist. NECK: Supple. No lymphadenopathy. Thyroid is not palpable. LUNGS: Clear. HEART: S1 and S2, normal. No S3. No S4. No murmur. ABDOMEN: Soft, obese, and nontender. EXTREMITIES: No clubbing, cyanosis, or edema. The lower back is covered with a dressing. NEUROLOGIC: He is alert and oriented x4. There are no any motor or sensory deficits. Cranial nerves are intact. LABORATORY DATA: None today. Yesterday, normal chemistry. IMPRESSION: 1. Lumbar spine stenosis, status post decompression and diskectomy. 2. Hypertension. 3. Diabetes mellitus type 2, controlled. 4. Constipation, intermittent with some diarrhea. PLAN: Continue his oral opioids. Continue PT/OT. Continue IV fluids. We are awaiting approval for the rehab. Job ID: [id number]
[2018-11-02 19:46] VITALS: BP 129/83; TEMP 98.6
--- NOTE | 2018-11-05 10:22 | DIS ---
DATE OF ADMISSION: 11/01/2018 DATE OF DISCHARGE: 11/02/2018 DIAGNOSES AT THE TIME OF DISCHARGE: 1. Lumbar spinal stenosis, status post decompression and diskectomy. 2. Hypertension. 3. Diabetes mellitus type 2, controlled. 4. Constipation, intermittent with some diarrhea. HOSPITAL COURSE: The patient is a 53-year-old male, who was admitted to the hospital post L3-L4 lumbar decompression with diskectomy on October 17, also having diabetes mellitus type 2, hypertension, who presented to the [facility] with worsening lower back pain. Apparently, his pain postsurgery was doing quite well. It got worse after he visited his primary care physician and received Toradol injection, first got better then worse, and he decided to come to the emergency room for further evaluation. Evaluation in the emergency room was found to have white count of 10.2, hemoglobin of 13.6, platelet count 267. ESR was 44. Sodium 138, potassium 4.5, chloride 105, CO2 of 25, BUN 8, and creatinine 0.85. Urinalysis showed trace leukocyte esterase, otherwise unremarkable. The patient was admitted for pain management with [place], cyclobenzaprine, and Toradol. Dr. Prado, neurosurgical consult was done and he recommended rehabilitation center admission for PT and OT, and pain management. The patient stayed in the hospital until today, which is . He was receiving PT and he was receiving Toradol IV and opioids. He received IV fluids. Today, he is doing somewhat better. His blood pressure is 159/84, pulse is 71, temperature is 97.2, O2 saturation is 94%, and his respiratory rate is 18. He was seen and examined before. He was discharged today. Ortho PA came and took his stitches off. His appetite is diminished, but he is leaving to the new facility today for physical therapy. MEDICATIONS: At the time of discharge to the inpatient rehab: 1. Metformin 750 once a day. 2. Hydrocodone 7.5, one tablet every 4 hours p.r.n. as needed. 3. Pepcid 20 mg twice a day. 4. Lovenox 40 mg subcutaneous every 24 hours. 5. Cyclobenzaprine 10 mg 3 times a day p.r.n. 6. Atorvastatin 40 mg at bedtime. 7. Aspirin 81 mg once a day. 8. Cholecalciferol 1000 units. 9. Senokot S1 tablets twice a day. 10. Zofran p.r.n. as needed. The patient was seen and examined before he was discharged. He is going to stay on diabetic diet. The discharge time is less than 30 minutes. Job ID: [id number]
== END 2018-11-02 20:30 | DRG 552 ==
LOC: ERS 09:55 → T4-B 16:37 → OBSVTOIN 11-01 14:19
PROVIDERS: ADMIT Emergency Medicine; ATTEND Emergency Medicine
DX: M48.061 Spinal stenosis, lumbar region without neurogenic claudication (principal); I10 Essential (primary) hypertension; E11.9 Type 2 diabetes mellitus without complications; Z79.84 Long term (current) use of oral hypoglycemic drugs; E78.5 Hyperlipidemia, unspecified; Z79.82 Long term (current) use of aspirin; Z87.891 Personal history of nicotine dependence; K59.00 Constipation, unspecified; G89.29 Other chronic pain
CPT/HCPCS: 36415; 36416; 80048; 80053; 81003; 81015; 83690; 85025; 85652; 86140; 96374; 96375; J1100; J1650; J1885; J2405; J3010

== ENCOUNTER 2021-06-08 09:37 | Outpatient (CLI) | payer BC | END 2021-06-08 09:38 | disposition home or self-care (01) | LOC: BICCT 09:37 | PROVIDERS: ATTEND Specialist | DX: R22.1 Localized swelling, mass and lump, neck (principal) | CPT/HCPCS: 70491; 82565 ==

== ENCOUNTER 2021-08-31 14:54 | Outpatient (CLI) | payer BC ==
[~2021-08-31 14:54] MED LIST: Magnevist 469MG/ML 20 ML VIAL ONE
== END 2021-08-31 14:55 | disposition home or self-care (01) ==
LOC: TBSIIMAG 14:54
PROVIDERS: ATTEND Specialist
DX: R42 Dizziness and giddiness (principal); G93.89 Other specified disorders of brain; Z86.73 Personal history of transient ischemic attack (TIA), and cerebral infarction without residual deficits
CPT/HCPCS: 70553; A9579

== ENCOUNTER 2021-10-22 07:18 | Day surgery (SDC) | payer BC ==
[2021-10-13 12:39] VITALS: BMI 46.6
[2021-10-22 08:32] VITALS: TEMP 97.9
[2021-10-22 10:35] LABS: Tube # 1; Unspun CSF Color PINK (Colorless)
[2021-10-22 10:58] LABS: CSF Source CSF; Clarity Clear (Clear); Tube # 4
[2021-10-22 11:06] LABS: CSF, Glucose 77 mg/dl (40-70); CSF, Protein 75 mg/dL (15-40)
[2021-10-22 11:28] LABS: Color Of CSF Supernatant COLORLESS (Colorless)
[2021-10-22 12:59] VITALS: BP 104/52
[2021-10-22 14:55] LABS: Ref Lab Test Ordered IGG SYN + INDEX; Reference Lab Name LABCORP
[2021-10-25 14:38] LABS: VDRL, CSF Non Reactive (Non Rea:<1:1)
[2021-10-25 15:37] LABS: Cell Count Non Hematic 11 %; Eosinophils 1 %; Lymphocytes 85 %; Segmented Neutrophils 3 %
== END 2021-10-22 10:45 | disposition home or self-care (01) ==
LOC: RAD 07:18
PROVIDERS: ATTEND Psychiatry & Neurology Neurology
PROC: 009U3ZX Drainage of Spinal Canal, Percutaneous Approach, Diagnostic (ICD-10-PCS; principal; 2021-10-22)
DX: R42 Dizziness and giddiness (principal); G37.9 Demyelinating disease of central nervous system, unspecified; Z79.82 Long term (current) use of aspirin; Z79.84 Long term (current) use of oral hypoglycemic drugs; Z79.899 Other long term (current) drug therapy; Z88.1 Allergy status to other antibiotic agents
CPT/HCPCS: 62270; 82945; 83916; 84157; 85060; 86592; 89051